=== PATIENT | male | born 2000 | race Two or more races ===

== ENCOUNTER 2020-04-21 10:05 | Emergency (ER) | payer SELFPAY ==
[2020-04-21] MEDS ORDERED: Ondansetron 4 MG/2 ML SDV IVPUSH ONE (10:42)
[2020-04-21] MEDS ORDERED: Ketorolac 30 MG/ML SDV IVPUSH ONE (10:45)
--- NOTE | 2020-04-21 10:55 | EDM.PDOC ---
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 Unable to speak or understand Turkmen and currently using physical security manager for assistance. He states the pain started in the middle of the night. States he has been vomiting as well since onset. Points to upper abdomen/epigastric area to where his pain is at. He is having a difficult time getting comfortable in the ED. Denies any diarrhea. Last known bowel movement was yesterday morning adn was normal. Last known meal was yesterday evening and ate chicken he had bought that was already cooked. Denies any other past medical history. States he did take a pill this morning but isn't sure what pill he took as it is in Turkmen. Duration: Constant Location: Reports: Abdomen Abdominal Pain Score (Numeric/FACES): 10 - Related Data Allergies Allergy/AdvReac Type Severity Reaction Status Date / Time No Known Allergies Allergy Verified 04/21/20 10:22 Home Meds: Home Meds . [No Known Home Meds] 04/21/20 [History] Past Medical History - Past Health History Medical/Surgical History: Denies Medical/Surgical History Social & Family History - Family History Family Medical History: Noncontributory - Tobacco Use Tobacco Use Status *Q: Never Tobacco User - Alcohol Use Date of Last Drink: 04/20/20 Alcohol Use in Last Twelve Months: Yes Alcohol Use Frequency: Socially Alcohol Use Comment: Last alcohol use was 2 beers last night - Recreational Drug Use Recreational Drug Use: No ED ROS GENERAL - Review of Systems Review Of Systems: See Below Constitutional: Reports: No Symptoms. Denies: Fever, Decreased Appetite HEENT: Reports: No Symptoms Respiratory: Reports: No Symptoms Cardiovascular: Reports: No Symptoms GI/Abdominal: Reports: Abdominal Pain, Nausea, Vomiting. Denies: Bloody Stool, Diarrhea, Flatus : Reports: No Symptoms Musculoskeletal: Reports: Back Pain (states from throwing up a lot) Skin: Reports: No Symptoms Neurological: Reports: No Symptoms Psychiatric: Reports: No Symptoms ED EXAM, GI/ABD - Physical Exam Exam: See Below Exam Limited By: Language Barrier General Appearance: Alert, Mild Distress, Moderate Distress Eyes: Bilateral: Normal Appearance Nose: Normal Inspection, Normal Mucosa, No Blood Throat/Mouth: Normal Inspection, Normal Lips, Normal Teeth, Normal Gums, Normal Oropharynx, Normal Voice, No Airway Compromise Head: Atraumatic, Normocephalic Neck: Normal Inspection, Supple, Non-Tender Respiratory/Chest: No Respiratory Distress, Lungs Clear, Normal Breath Sounds, No Accessory Muscle Use Cardiovascular: Normal Peripheral Pulses, Regular Rate, Rhythm, No Edema, No Murmur GI/Abdominal Exam: Normal Bowel Sounds, No Organomegaly, No Distention, Tender (upper abdomen ), Other (negative Rhosving, negative McBurney's point) Back Exam: No: CVA Tenderness (L), CVA Tenderness (R) Extremities: Normal Inspection, No Pedal Edema Neurological: Alert, Normal Cognition, No Motor/Sensory Deficits Psychiatric: Normal Affect, Normal Mood Skin Exam: Warm, Dry, Intact, Normal Color, No Rash Course - Vital Signs Last Recorded V/S: Last Vital Signs Temp 99.6 F 04/21/20 12:58 Pulse 76 04/21/20 12:58 Resp 18 04/21/20 12:58 BP 111/72 04/21/20 12:58 Pulse Ox 99 04/21/20 12:58 - Orders/Labs/Meds Orders: Active Orders 24 hr Category Date Time Status Abdomen Pelvis w Cont [CT] Stat Exams 04/21/20 11:13 Taken Potassium Chloride [KCL 20 MEQ in Water 100 ML] 20 meq Med 04/21/20 11:14 Active Premix Bag 1 bag IV ONETIME Sodium Chloride 0.9% [Normal Saline] 1,000 ml Med 04/21/20 11:00 Active IV ASDIRECTED Medication Orders Sodium Chloride (Normal Saline) 1,000 mls @ 250 mls/hr IV ASDIRECTED ANNIA Stop: 04/25/20 10:46 Last Admin: 04/21/20 10:53 Dose: 250 mls/hr Documented by: JUDY Potassium Chloride 20 meq/ (Premix) 100 mls @ 25 mls/hr IV ONETIME ONE Stop: 04/21/20 15:13 Last Admin: 04/21/20 11:44 Dose: 25 mls/hr Documented by: JUDY Labs: Laboratory Tests 04/21/20 04/21/2004/21/20 Range/Units 10:12 10:12 10:30 WBC 17.5 H (5.0-10.0) 10^3/uL RBC 5.84 (4.50-6.00) 10^6/uL Hgb 16.3 (14.0-18.0) g/dL Hct 46.5 (40.0-54.0) % MCV 79.6 L (82.0-94.0) fL MCH 27.9 (27.0-32.0) pg MCHC 35.1 (33.0-38.0) g/dL RDW Coeff of John 13.0 (11.0-15.0) % Plt Count 249 (150-400) 10^3/uL Neut % (Auto) 91.3 H (35-85) % Lymph % (Auto) 4.7 L (10-55) % Bacon % (Auto) 3.8 (0-16) % Eos % (Auto) 0.1 (0-5) % Baso % (Auto) 0.1 (0-3) % Neut # (Auto) 16.02 H (1.80-7.00) 10^3/uL Lymph # (Auto) 0.83 L (1.00-4.80) 10^3/uL Bacon # (Auto) 0.66 (0.00-0.80) 10^3/uL Eos # (Auto) 0.01 (0.00-0.45) 10^3/uL Baso # (Auto) 0.02 10^3/uL Sodium 138 (136-145) mEq/L Potassium 3.2 L (3.5-5.0) mEq/L Chloride 101 (98-106) mEq/L Carbon Dioxide 24 (21-32) mmol/L BUN 16 (7-18) mg/dL Creatinine 1.0 (0.7-1.3) mg/dL Est Cr Clr Drug Dosing 106.33 mL/min Estimated GFR (MDRD) > 60 (>=60) mL/min Glucose 121 H (75-99) mg/dL Lactic Acid (0.4-2.0) mmol/L Calcium 9.3 (8.4-10.1) mg/dL Total Bilirubin 2.2 H (0.0-1.0) mg/dL AST 22 (15-37) U/L ALT 21 (12-78) U/L Alkaline Phosphatase 82 (46-116) U/L C-Reactive Protein 0.2 (0.2-0.8) mg/dL Total Protein 8.1 (6.4-8.2) g/dL Albumin 4.8 (3.4-5.0) g/dL Amylase 27 (25-115) U/L Lipase 49 L (73-393) U/L Urine Color Yellow (YELLOW) Urine Appearance Cloudy (CLEAR) Urine pH 8.5 H (4.5-8.0) Ur Specific Blanchard 1.025 H (1.003-1.020) Urine Protein Negative (NEGATIVE) mg/dL Urine Glucose (UA) Negative (NEGATIVE) mg/dL Urine Ketones 40 H (NEGATIVE) mg/dL Urine Occult Blood Trace-intact H (NEGATIVE) Urine Nitrite Negative (NEGATIVE) Urine Bilirubin Negative (NEGATIVE) Urine Urobilinogen 0.2 (0.2-1.0) EU/dL Ur Leukocyte Esterase Negative (NEGATIVE) Urine RBC 5-10 H (0-5) /HPF Urine WBC Not seen (0-5) /HPF 04/21/20 Range/Units 10:30 WBC (5.0-10.0) 10^3/uL RBC (4.50-6.00) 10^6/uL Hgb (14.0-18.0) g/dL Hct (40.0-54.0) % MCV (82.0-94.0) fL MCH (27.0-32.0) pg MCHC (33.0-38.0) g/dL RDW Coeff of John (11.0-15.0) % Plt Count (150-400) 10^3/uL Neut % (Auto) (35-85) % Lymph % (Auto) (10-55) % Bacon % (Auto) (0-16) % Eos % (Auto) (0-5) % Baso % (Auto) (0-3) % Neut # (Auto) (1.80-7.00) 10^3/uL Lymph # (Auto) (1.00-4.80) 10^3/uL Bacon # (Auto) (0.00-0.80) 10^3/uL Eos # (Auto) (0.00-0.45) 10^3/uL Baso # (Auto) 10^3/uL Sodium (136-145) mEq/L Potassium (3.5-5.0) mEq/L Chloride (98-106) mEq/L Carbon Dioxide (21-32) mmol/L BUN (7-18) mg/dL Creatinine (0.7-1.3) mg/dL Est Cr Clr Drug Dosing mL/min Estimated GFR (MDRD) (>=60) mL/min Glucose (75-99) mg/dL Lactic Acid 1.2 (0.4-2.0) mmol/L Calcium (8.4-10.1) mg/dL Total Bilirubin (0.0-1.0) mg/dL AST (15-37) U/L ALT (12-78) U/L Alkaline Phosphatase (46-116) U/L C-Reactive Protein (0.2-0.8) mg/dL Total Protein (6.4-8.2) g/dL Albumin (3.4-5.0) g/dL Amylase (25-115) U/L Lipase (73-393) U/L Urine Color (YELLOW) Urine Appearance (CLEAR) Urine pH (4.5-8.0) Ur Specific Blanchard (1.003-1.020) Urine Protein (NEGATIVE) mg/dL Urine Glucose (UA) (NEGATIVE) mg/dL Urine Ketones (NEGATIVE) mg/dL Urine Occult Blood (NEGATIVE) Urine Nitrite (NEGATIVE) Urine Bilirubin (NEGATIVE) Urine Urobilinogen (0.2-1.0) EU/dL Ur Leukocyte Esterase (NEGATIVE) Urine RBC (0-5) /HPF Urine WBC (0-5) /HPF Meds: Medications Generic Name Dose Route Start Last Admin Trade Name Freq PRN Reason Stop Dose Admin Sodium Chloride 1,000 mls @ 250 mls/hr 04/21/20 11:00 04/21/20 10:53 Normal Saline IV 04/25/20 10:46 250 mls/hr ASDIRECTED ANNIA Administration Potassium Chloride 20 meq/ 100 mls @ 25 mls/hr 04/21/20 11:14 04/21/20 11:44 Premix IV 04/21/20 15:13 25 mls/hr ONETIME ONE Administration Discontinued Medications Generic Name Dose Route Start Last Admin Trade Name Freq PRN Reason Stop Dose Admin Iopamidol 100 ml 04/21/20 11:40 04/21/20 11:42 Isovue-370 (76%) IVPUSH 04/21/20 11:41 100 ml ONETIME ONE Administration Ketorolac Tromethamine 15 mg 04/21/20 10:45 04/21/20 10:53 Toradol IVPUSH 04/21/20 10:46 15 mg ONETIME ONE Administration Ondansetron HCl 4 mg 04/21/20 10:42 04/21/20 10:44 Zofran IVPUSH 04/21/20 10:43 4 mg Q6H ONE Administration Departure - Departure Time of Disposition: 13:00 Disposition: DC/Tfer to Acute Hospital 02 Clinical Impression: Acute appendicitis Qualifiers: Acute appendicitis type: with localized peritonitis Appendicitis gangrene pr esence: without gangrene Appendicitis perforation presence: without perforation Appendicitis abscess presence: without abscess Qualified Code(s): K35.30 - Acute appendicitis with localized peritonitis, without perforation or gangrene - Discharge Information Forms: ED Department Discharge Additional Instructions: 1) Transfer to [facility] for surgical intervention for acute appendicitis 2) Remain NPO 3) Transfer via S Sepsis Event Note (ED) - Evaluation Sepsis Screening Result: No Definite Risk - Focused Exam Vital Signs: Vital Signs Temp Pulse Resp BP Pulse Ox 04/21/20 12:58 99.6 F 76 18 111/72 99 04/21/20 12:00 110/65 04/21/20 11:15 98/66 04/21/20 10:17 96.8 F L 75 24 H 142/104 H 99 - Problem List & Annotations (1) Acute appendicitis SNOMED Code(s): 67009938 Code(s): K35.80 - UNSPECIFIED ACUTE APPENDICITIS Status: Acute Current Visit: Yes Qualifiers: Acute appendicitis type: with localized peritonitis Appendicitis gangrene presence: without gangrene Appendicitis perforation presence: without perforation Appendicitis abscess presence: without abscess Qualified Code(s): K35.30 - Acute appendicitis with localized peritonitis, without perforation or gangrene - Problem List Review Problem List Initiated/Reviewed/Updated: Yes - My Orders Last 24 Hours: My Active Orders 04/21/20 11:00 Sodium Chloride 0.9% [Normal Saline] 1,000 ml IV ASDIRECTED 04/21/20 11:13 Abdomen Pelvis w Cont [CT] Stat 04/21/20 11:14 Potassium Chloride [KCL 20 MEQ in Water 100 ML] 20 meq Premix Bag 1 bag IV ONETIME - Assessment/Plan Last 24 Hours: My Active Orders 04/21/20 11:00 Sodium Chloride 0.9% [Normal Saline] 1,000 ml IV ASDIRECTED 04/21/20 11:13 Abdomen Pelvis w Cont [CT] Stat 04/21/20 11:14 Potassium Chloride [KCL 20 MEQ in Water 100 ML] 20 meq Premix Bag 1 bag IV ONETIME Plan: CT of the abdomen/pelvis confirmed acute appendicitis. Per radiology report, appendix is about 9mm with some streaking noted adjacently. While waiting on CT report, patient has been receiving IV fluids with 20 mEq of potassium chloride. Will d/c at this time, roughly 10 mEq received, for transfer via BLS. Consulted with Dr. Nguyen, general surgeon, at [facility] who kindly accepted transfer. Attempted to contact Jvoanni's employer as he has no other contact, which we were unavailable to get in touch with them. We will continue to try calling and let them know Jovanni's current condition and being transferred to [facility]. Patient has been stable in ED and blood pressure has significantly improved. No antibiotic given in ED as patient is being transferred at this time. Will continue IV fluids while en route. Risks and benefits of transfer discussed with patient via clerical assistant. Risks of transfer included worsening of condition, MVA, increased pain. Benefits of transfer included higher level of care facility, critical care monitoring and surgical intervention. Risks of non-transfer included lack of specialized care/treatment/intervention, worsening of condition. Benefits of non-transfer included staying in familiar environment and close to home. Patient verbalized understanding and is in agreement with transfer.
[2020-04-21] MEDS ORDERED: Sodium Chloride 0.9% 1,000 ML IV SCH (11:00)
[2020-04-21 11:07] LABS: CHLORIDE,CL 101 mEq/L (98-106); SODIUM,NA 138 mEq/L (136-145)
[2020-04-21] MEDS ORDERED: Potassium Chloride 20 MEQ in Premix Bag 1 BAG IV ONE (11:14)
[2020-04-21] MEDS ORDERED: Iopamidol 755 Mg/ML 100 ML Bottle IVPUSH ONE (11:40)
== END 2020-04-21 13:55 | disposition critical access hospital (66) ==
LOC: CC.ED 10:05
DX: K35.30 Acute appendicitis with localized peritonitis, without perforation or gangrene (principal)
CPT/HCPCS: 36415; 74177; 80053; 81001; 82150; 83605; 83690; 85025; 86140; 96365; 96366; 96375; 99285-25; J1885; J2405; J3480; J7030; Q9967